=== PATIENT | female | born 1970 | race Caucasian/White ===

== ENCOUNTER 2020-10-20 10:00 | Day surgery (SDC) | payer OTHER ==
[~2020-10-20] VITALS: Ht 172.7 cm; Wt 121.6 kg
[~2020-10-20 10:00] MED LIST: ASCO500 PO; DIAZ2 PO; DOCU100 PO; ESTR2 PO; HYDACE5 PO; IBUP800 PO; IRON PO; Milk Of Ma400 MG/5 M PO; OXYACE5T PO; SULTRIDS PO
--- NOTE | 2020-10-20 11:15 | NUR ---
10/20/20 1115 Eva Hilliard FIRST ATTEMPT MISSED BY THE MA IN THE RIGHT HAND. SECOND ATTEMPT MISSED BY RN IN THE RIGHT AC. THIRD ATTEMPT MISSED BY RN IN THE L HAND. FOURTH ATTEMPT MISSED BY RN IN THE L FOREARM. FIFTH ATTEMPT SUCCESSFUL BY RN IN THE RIGHT WRIST
== END 2020-10-20 12:07 | disposition home or self-care (01) ==
LOC: ORSCSDS 10:00
PROVIDERS: Internal Medicine Gastroenterology
PROC: 0DBM8ZX Excision of Descending Colon, Via Natural or Artificial Opening Endoscopic, Diagnostic (ICD-10-PCS; principal; 2020-10-20 11:45)
DX: K92.1 Melena (principal); D12.4 Benign neoplasm of descending colon; K57.30 Diverticulosis of large intestine without perforation or abscess without bleeding; K64.1 Second degree hemorrhoids; I10 Essential (primary) hypertension; Z87.891 Personal history of nicotine dependence
CPT/HCPCS: 88305; J2704; J7120

== ENCOUNTER 2021-08-29 17:03 | Observation (INO) | payer OTHER ==
[~2021-08-29] VITALS: Ht 172.7 cm; Wt 107.0 kg
[2021-08-29 17:37] LABS: Source, Urine Clean Catch
[2021-08-29 17:47] LABS: Appearance, Urine Clear (Clear); Bilirubin, Urine Neg (Neg); Blood, Urine Neg (Neg); Color, Urine Yellow (P-Yellow); Glucose Qualitative, Urine Neg (Neg); Ketones, Urine Neg (Neg); Leukocyte Esterase, Urine Neg (Neg); Nitrite, Urine Neg (Neg); Protein, Urine Neg (Neg); Specific Gravity, Urine 1.015 (1.003-1.022); Urobilinogen, Urine NORM (Normal)
[2021-08-29 18:26] LABS: BASOPHILS ABSOLUTE AUTO 0.02 K/mm3 (0.00-0.23); BASOPHILS PERCENT AUTO 0 % (0-2); EOSINOPHILS ABSOLUTE AUTO 0.04 K/mm3 (0.00-0.68); EOSINOPHILS PERCENT AUTO 0 % (0-6); Hematocrit 40.7 % (33.0-51.0); Hemoglobin 12.9 g/dL (11.5-16.0); IMMATURE GRAN ABSOLUTE AUTO 0.02 K/mm3 (0.00-0.10); IMMATURE GRAN PERCENT AUTO 0 % (0-1); LYMPHOCYTES ABSOLUTE AUTO 1.06 K/mm3 (0.84-5.20); LYMPHOCYTES PERCENT AUTO 11 % (21-46); MONOCYTES ABSOLUTE AUTO 0.39 K/mm3 (0.16-1.47); MONOCYTES PERCENT AUTO 4 % (4-13); Mean Corpuscular HGB 28.7 pg (26.0-34.0); Mean Corpuscular HGB Conc 31.7 g/dL (31.5-36.5); Mean Corpuscular Volume 90 fL (80-100); Mean Platelet Volume 9.9 fL (9.1-12.4); NEUTROPHILS PERCENT AUTO 84 % (41-73); Platelet Count 204 K/mm3 (150-400); RDW Coefficient Variation 13.7 % (11.7-14.2); RDW Standard Deviation 45.7 fL (35.1-46.3); White Blood Cell Count 9.43 K/mm3 (4.00-11.30)
[2021-08-29 18:47] LABS: Albumin, Blood 3.5 g/dL (3.4-5.0); Albumin/Globulin Ratio 0.9 (0.8-1.8); Bilirubin, Total 0.3 mg/dL (0.1-1.0); Bun/Creatinine Ratio 21.3 (12.0-20.0); Calcium, Blood 9.1 mg/dL (8.5-10.1); Creatinine, Blood 0.56 mg/dL (0.40-1.00); Potassium, Blood 3.8 mmol/L (3.5-5.5); Total Protein, Blood 7.5 g/dL (6.4-8.2)
[2021-08-29 23:14] LABS: Influenza A, PCR NEGATIVE (NEGATIVE); Influenza B, PCR NEGATIVE (NEGATIVE); Resp Syncytial Virus, PCR NEGATIVE (NEGATIVE); SARS-Cov-2 (COVID-19) PCR, MMC NEGATIVE (NEGATIVE)
--- NOTE | 2021-08-29 23:36 | NUR ---
PT ARRIVAL PT ARRIVED TO THE FLOOR AT APPROX 2255, TRANSFERED FROM [facility] TO BED INDEPENDENTLY, GOT CHANGED INTO GOWN AND VITAL SIGNS TAKEN. PT USED RESTROOM. ASSESSMENT COMPLETE, PT REPORTS LITTLE PAIN AT THIS TIME AND NO N/V. NPO STATUS AT THIS TIME, PLANNED FOR SURGERY TOMORROW. WILL CONTNINUE TO MONITOR.
--- NOTE | 2021-08-30 04:10 | NUR ---
SHIFT SUMMARY A/O X4. IND IN THE ROOM. NPO SINCE ARRIVAL TO THE FLOOR. MANAGING PAIN W/ IV DILAUDID. PT RESTING WELL. VOIDING, NO N/V REPORTED. WILL CONTINUNE TO MONITOR AND REPORT TO ONCOMING RN.
--- NOTE | 2021-08-30 08:34 | NUR ---
PT TAKEN TO DAY SURGERY AT THIS TIME.
--- NOTE | 2021-08-30 09:17 | NUR ---
08/30/21 0917 Oumou Pugh NO PREOP ANTIBIOTICS ORDERED PER PATIENT IS ON SHCEDULED ANTIBIOTICS.
--- NOTE | 2021-08-30 11:55 | NUR ---
PT ARRIVED BACK FROM PACU AT 1100. PT ALERT AND ORIENTED. PT REPORTS MILD ABD PAIN, NORCO GIVEN. INCENTIVE SPIROMETER PROVIDED AND PT DEMONSTRATED USE. WILL CONTINUE TO MONITOR.
[2021-08-30] MEDS ORDERED: HYDR1TAB94 PO (14:20)
--- NOTE | 2021-08-30 18:30 | NUR ---
SHIFT SUMMARY PT IS POD#[address] HAMILTON. PT IS TOLERATING PO, SHE HAS BEEN ABLE TO VOID AND ABLE TO AMBULATE. PT IS INDEPENDENT IN THE ROOM. PLAN FOR DISCHARGE HOME TOMORROW. VSS. WILL MONITOR UNTIL REPORT TO KAPIL RN.
--- NOTE | 2021-08-31 04:24 | NUR ---
SHIFT SUMMARY A/O X4. POD1 LAP APPY- 3 LAP SITES COVERED W/ GAUZE AND TEGADERM C/D/I. PAIN MANAGED W/ PO PAIN MEDICATION. IND IN THE ROOM. TOLERATING PO INTAKE, NO REPORT OF N/V. VOIDING WELL, REPORTS PASSING FLATUS. NO ACUTE CHANGES OVER NIGHT. WILL CONTINUE TO MONITOR AND REPORT TO ONCOMING RN.
--- NOTE | 2021-08-31 12:36 | NUR ---
DISCHARGE VSS ON RA. PATIENT TOELRATING REGULAR DIET, EATING, DRINKING, & VOIDING WELL. X3 LAP SITES TO ABDOMEN, C/D/I. DENEIS PAIN. DENIES N/V. DISCUSSED DISCHARGE INSTRUCTIONS, SENT WITH PATIENT. SENT SCRIPT WITH PATIENT. ESCORTED OUT VIA W/C.
== END 2021-08-31 12:30 | disposition home or self-care (01) ==
LOC: ER 17:03 → SURS 21:56 → ER 21:56 → SURS 21:57
PROVIDERS: Emergency Medicine; Physician Assistant; ADMIT Surgery
PROC: 0DTJ4ZZ Resection of Appendix, Percutaneous Endoscopic Approach (ICD-10-PCS; principal; 2021-08-30 09:30)
DX: K35.33 Acute appendicitis with perforation, localized peritonitis, and gangrene, with abscess (principal); K80.20 Calculus of gallbladder without cholecystitis without obstruction; E66.9 Obesity, unspecified; J45.909 Unspecified asthma, uncomplicated; G89.29 Other chronic pain; Z91.040 Latex allergy status; Z91.018 Allergy to other foods; Z87.891 Personal history of nicotine dependence; Z68.36 Body mass index [BMI] 36.0-36.9, adult; Z20.822 Contact with and (suspected) exposure to COVID-19
CPT/HCPCS: 0241U; 36415; 74177; 76705; 80053; 81003; 83690; 85025; 96365; 96366; 96372; 96374-59; 96375; 96375-59; 99285-25; A9270; G0378; J0295; J1100; J1170; J1650; J2250; J2405; J2704; J3010; J7030; Q9967